=== PATIENT | female | born 1960 | race Hispanic/Latino ===

== ENCOUNTER 2017-08-24 14:59 | Observation (INO) | payer BC ==
[~2017-08-24] VITALS: Ht 162.6 cm; Wt 76.0 kg
[~2017-08-24 14:59] MED LIST: LORTAB 10-325 M1 TAB PO; PERCOCET 5/325M1 TAB PO
--- NOTE | 2017-08-24 15:14 | NUR ---
PT TO ROOM 9 VIA WC. ABLE TO STAND AND TRANSFER SELF.
[2017-08-24] MEDS ORDERED: METFORMIN500 MG PO (15:23)
[2017-08-24] MEDS ORDERED: LISINOPRIL5 MG PO (15:24)
[2017-08-24] MEDS ORDERED: ASPIRIN81 MG PO (15:24)
[2017-08-24 15:41] LABS: HEMATOCRIT 40.4 % (37.0-47.0); HEMOGLOBIN 13.2 g/dl (12.0-16.0); IMMATURE GRANULOCYTES 0.3 % (0.0-1.0); MEAN CELL VOLUME 83.6 fL CALC (80.0-100.0); MEAN CORPUSCULAR HGB 27.3 pG CALC (26.0-32.0); MEAN CORPUSCULAR HGB CONC 32.7 g/L CALC (32.0-36.0); NEUT# 5.24 thou/uL (2.00-7.15); RED BLOOD COUNT 4.83 mill/uL (4.20-5.60); RED CELL DISTRI WIDTH 13.8 % (11.5-15.5)
[2017-08-24 15:54] LABS: ALKALINE PHOSPHATASE 125 u/l (38-126); AMYLASE 102 u/l (30-110); ANION GAP 16 (6-22 (CALC)); BILIRUBIN, TOTAL 0.4 mg/dL (0.0-1.4); BUN 11 mg/dL (7-17); BUN/CREATININE RATIO 15 (12-20 (CALC)); CALCIUM 10.4 mg/dL (8.4-10.2); CARBON DIOXIDE 28 mmol/l (22-30); CHLORIDE 100 mmol/l (95-108); CREATININE 0.8 mg/dL (0.5-1.0); GFR > 60 ML/MIN (>=60 (CALC)); GFR FOR AFR.AMER. > 60 ML/MIN (>=60 (CALC)); GLUCOSE 132 mg/dL (65-105); LIPASE 99 u/l (23-300); SGOT/AST 24 u/l (14-36); SGPT/ALT 43 u/l (9-52); SODIUM 141 mmol/l (137-146)
[2017-08-24 16:06] LABS: MYOGLOBIN 64 ng/mL (0 - 62)
--- NOTE | 2017-08-24 16:30 | NUR ---
PT TO RADIOLOGY VIA WC. STABLE AND APPEARS COMFORTABLE.
--- NOTE | 2017-08-24 17:04 | NUR ---
PT RETURNED FROM RADIOLOGY. ADVISED OF WAIT TIME FOR RESULTS. IV SITE HEALTHY. FLUIDS RESUMED.
[2017-08-24 17:07] LABS: URINE BILIRUBIN - DIPSTICK NEGATIVE (NEGATIVE); URINE BLOOD DIPSTICK SMALL (NEGATIVE); URINE CLARITY CLEAR; URINE COLOR YELLOW; URINE GLUCOSE - DIPSTICK NEGATIVE (NEGATIVE); URINE KETONE NEGATIVE (NEGATIVE); URINE LEUK ESTERASE NEGATIVE (NEGATIVE); URINE NITRITE - DIPSTICK NEGATIVE (Negative); URINE PROTEIN - DIPSTICK NEGATIVE (NEG-TRACE); URINE UROBILINOGEN - DIPSTICK 0.2 E.U./dL (0.2)
[2017-08-24 17:24] LABS: URINE SQUAMOUS EPITHELIAL CELL FEW EPI/hpf (0-FEW); URINE WBC 0-2 WBC/hpf (0-5)
--- NOTE | 2017-08-24 17:58 | NUR ---
PT TO CT VIA STRETCHER.
--- NOTE | 2017-08-24 18:02 | NUR ---
SBAR PRINTED TO FLOOR
--- NOTE | 2017-08-24 18:10 | NUR ---
PT RETURNED FROM CT ADVISED OF WAIT TIME. STATES PAIN IS DECREASED. IV SITE HEALTHY.
--- NOTE | 2017-08-24 18:35 | NUR ---
MD AT BEDSIDE AND DISCUSSED ADMIT POC.PT VOICED UNDERSTANDNG.
--- NOTE | 2017-08-24 19:01 | NUR ---
REPORT PROVIDED TO ORION SMITH, ON [employer].
--- NOTE | 2017-08-24 19:41 | NUR ---
[facility] TO TRANSPORT PT TO MS2. PT RESTING ON STRETCHER SPEAKING WITH FAMILY. STATES ABD PAIN IS MINIMAL. CALL LIGHT WITHIN REACH. WILL CONTINUE TO MONITOR.
--- NOTE | 2017-08-24 19:51 | NUR ---
PT REPORTING NAUSEA, ORDERS RECEIVED FROM ANTIEMETIC.
--- NOTE | 2017-08-24 20:04 | NUR ---
PT MEDICATED WITH ANTIEMETIC FOR C/O NAUSEA. PT TOLERATED WELL. INFORMED PT AWAITING ON [facility] FOR ACCEPTANCE. DENIES ANY NEEDS AT THIS TIME. STATES NO PAIN AT THIS TIME. CALL LIGHT WITHIN REACH. HOB LOWERED PER PT REQUEST. LIGHTS DIMMED FOR COMFORT.
--- NOTE | 2017-08-24 20:25 | NUR ---
Admission Note Report Given to: ORION MCCOLLUM Transported by: Wheelchair X Stretcher Transported with: X Nurse Transporter X Patent IV O2 Manager [employer]
[2017-08-24 20:30] VITALS: BP 174/95
--- NOTE | 2017-08-24 20:30 | NUR ---
FROM ER TO MED/SURG B267, VIA STRETCHER, ALERT AND ORIENTED X3, ACCOMPAINED BY MACKENZIE, JANICE, AND . ABLE TO AMBULATE TO STANDING SCALE THEN TO BED, UNSTEADY GAIT NOTED, C/O OF DIZZINESS, HEADACHE, RATES IT AT 9/10, NAUSEA, NO EMESIS NOTED AT THIS TIME, STATES PAIN IN RUQ IS AT 2/10, PREVIOUSLY MEDICATED FOR PAIN, STATES IS DIABETIC, TAKES METFORMIN 1000 MG AM & PM AT HOME, ONLY TOOK AM DOSE, DENIES MONITORING GLUCOSE REGULARLY AT HOME, BP IS ELEVATED, WILL RECHECK MANUAL BP, STATES TOOK HER DAILY DOSE OF LISINOPRIL AT HOME. WILL NOTIFY DR. MCBRIDE OF PT NEEDS FOR ORDERS, CALL ALBRECHT AT REACH. WILL CONTINUE TO MONITOR.
--- NOTE | 2017-08-24 21:42 | NUR ---
MEDICATED WITH PHENERGAN IM, FOR NAUSEA, AND TYLENOL FOR HEADACHE, WILL CONTINUE TO REASSESS. CALL ALBRECHT AT REACH. NO EMESIS, BM, URINE, INSPECTED AT THIS TIME, IV SITE IS PATENT.
[2017-08-24 23:00] VITALS: BP 150/78
--- NOTE | 2017-08-24 23:04 | NUR ---
PT STATES NAUSEA AND HEADACHE "IS ALMOST GONE." NO FACIAL GRIMACE OR GUARDING NOTED, DENIES PAIN AT THIS TIME. AT BEDSIDE.
[2017-08-24 23:41] VITALS: BP 123/77
--- NOTE | 2017-08-24 23:52 | NUR ---
HELD HYDRALAZINE BP 123/77 AT THIS TIME. PT DENIES PAIN, N/V, VOICES NO COMPLAINTS AT THIS TIME, NO DISTRESS NOTED, AFEBRILE, ENCOURAGED TO CALL IF NEEDED. AT BEDSIDE.
--- NOTE | 2017-08-25 01:57 | NUR ---
PT APPEARS TO BE SLEEPING, SNORING LOUDLY, VOICES NO COMPLAINTS AT THIS TIME, RESP ARE EVEN AND UNLABORED, AT BEDSIDE. CALL ALBRECHT AT REACH.
--- NOTE | 2017-08-25 04:50 | NUR ---
PULL UP HAND IN PT ROOM, DENIES PAIN, N/V, LEACH, VOIDED X1, NO BM, AMBULATED TO BRP, STEADY GAIT NOTED, AT BEDSIDE, NO FACIAL GRIMACE OR GUARDING NOTED, RESP ARE EVEN AND UNLABORED, VSS, AFEBRILE, CALL ALBRECHT AT REACH.
--- NOTE | 2017-08-25 04:57 | NUR ---
PT DENIES CP OR SOB, NO DISTRESS NOTED, SPO2 86%, INSTRUCTED ON DEEP BREATHING EXERCISES, IN THROUGH NOSE OUT THROUH MOUTH, AFTER BREATHING TECHN SPO2 UP TO 90%, DAUGHTER AT BEDSIDE, ENCOURAGED TO CALL IF NEEDED. CALL ALBRECHT AT REACH. DENIES USING O2 AT HOME. PLACED ON O2 VIA NC PER NC.
[2017-08-25 05:10] VITALS: BP 113/70
[2017-08-25 05:27] LABS: ALBUMIN 4.4 g/dL (3.2-5.0); ALKALINE PHOSPHATASE 103 u/l (38-126); AMYLASE 75 u/l (30-110); ANION GAP 15 (6-22 (CALC)); BILIRUBIN, TOTAL 0.6 mg/dL (0.0-1.4); BUN 10 mg/dL (7-17); BUN/CREATININE RATIO 14 (12-20 (CALC)); CALCIUM 9.6 mg/dL (8.4-10.2); CARBON DIOXIDE 27 mmol/l (22-30); CHLORIDE 104 mmol/l (95-108); CREATININE 0.7 mg/dL (0.5-1.0); GFR > 60 ML/MIN (>=60 (CALC)); GFR FOR AFR.AMER. > 60 ML/MIN (>=60 (CALC)); GLUCOSE 136 mg/dL (65-105); LIPASE 146 u/l (23-300); POTASSIUM 4.2 mmol/l (3.5-5.1); SGOT/AST 26 u/l (14-36); SGPT/ALT 41 u/l (9-52); SODIUM 142 mmol/l (137-146); TOTAL PROTEIN 7.6 g/dL (6.3-8.2)
[2017-08-25 05:36] LABS: HEMATOCRIT 38.5 % (37.0-47.0); HEMOGLOBIN 12.6 g/dl (12.0-16.0); IMMATURE GRANULOCYTES 0.3 % (0.0-1.0); MEAN CELL VOLUME 84.6 fL CALC (80.0-100.0); MEAN CORPUSCULAR HGB 27.7 pG CALC (26.0-32.0); MEAN CORPUSCULAR HGB CONC 32.7 g/L CALC (32.0-36.0); NEUT# 6.03 thou/uL (2.00-7.15); RED BLOOD COUNT 4.55 mill/uL (4.20-5.60)
[2017-08-25 06:20] VITALS: BP 145/78
--- NOTE | 2017-08-25 06:30 | NUR ---
VSS, AFEBRILE, NO DISTRESS NOTED, DENIES ABDOMINAL PAIN OR OTHER NEEDS/DISCOMFORT, AT BEDSIDE. CALL ALBRECHT AT REACH.
--- NOTE | 2017-08-25 07:20 | NUR ---
RECEIVED BEDSIDE REPORT FROM VEDA SEARS. RESTING IN BED WITH EYES CLOSED, AWAKENS EASILY. RESPS EVEN AND UNLABORED ON ROOM AIR. DENIES PAIN OR DISCOMFORT. AT BEDSIDE. PLAN OF CARE DISCUSSED. SAFETY PRECAUTIONS REINFORCED. BED IN LOWEST POSITION WITH WHEELS LOCKED. CALL LIGHT WITHIN REACH. WILL CONTINUE TO MONITOR.
[2017-08-25 07:46] VITALS: BP 128/84
--- NOTE | 2017-08-25 08:00 | NUR ---
TO [facility] IN STABLE CONDITION VIA WHEELCHAIR ACCOMPANIED BY RUSTAM MOTT.
--- NOTE | 2017-08-25 09:45 | NUR ---
RETURNED FROM [facility] VIA WHEELCHAIR ACCOMPANIED BY [email or web address] TECH.
[2017-08-25 10:13] LABS: CHOLESTEROL HDL RATIO 4.8 (<4.4 (CALC)); MAGNESIUM 1.9 mg/dL (1.6-2.3)
--- NOTE | 2017-08-25 12:00 | NUR ---
DR CRONIN IN WITH PT, NEW ORDERS RECEIVED.
[2017-08-25 12:24] VITALS: BP 127/79
--- NOTE | 2017-08-25 13:23 | NUR ---
TOLERATED LOW FAT DIET WITHOUT C/O NAUSEA OR ABD PAIN.
[2017-08-25] MEDS ORDERED: LIPITOR10 M1 PO (14:28)
--- NOTE | 2017-08-25 14:52 | NUR ---
Discharge instructions given. Patient verbalizes understanding of same. Discharged in stable condition via Ambulatory to Home with spouse. All belongings sent with pt.
== END 2017-08-25 15:50 | disposition home or self-care (01) | DRG 446 ==
LOC: ED 14:59 → ED-I 15:21 → ED 15:21 → ED-I 17:57 → ED 18:26 → MS2 18:27
PROVIDERS: Emergency Medicine; Nurse Practitioner Family; ADMIT Internal Medicine; ATTEND Internal Medicine
DX: K80.20 Calculus of gallbladder without cholecystitis without obstruction (principal); E11.69 Type 2 diabetes mellitus with other specified complication; I10 Essential (primary) hypertension; E78.5 Hyperlipidemia, unspecified; Z79.84 Long term (current) use of oral hypoglycemic drugs
CPT/HCPCS: A9537; G0378

== ENCOUNTER 2017-12-14 07:03 | Day surgery (SDC) | payer BC ==
[~2017-12-14] VITALS: Ht 162.6 cm; Wt 77.1 kg
[~2017-12-14 07:03] MED LIST changes: +ASPIRIN81 MG PO; +B-12500 MC2 PO; +LIPITOR10 M1 PO; +LISINOPRIL5 MG PO; +METFORMIN HCL1000 MG PO; +METFORMIN500 MG PO; +MOTRIN800 MG PO; +NORVASC PO
[2017-12-14] MEDS ORDERED: PERCOCET1 TA2 PO (09:56)
[2017-12-14 11:13] VITALS: BP 136/64
== END 2017-12-14 11:50 | disposition home or self-care (01) | DRG 419 ==
LOC: ORM 07:03
PROVIDERS: ATTEND Surgery
PROC: 0FT44ZZ Resection of Gallbladder, Percutaneous Endoscopic Approach (ICD-10-PCS; principal; 2017-12-14)
PROC: BF001ZZ Plain Radiography of Bile Ducts using Low Osmolar Contrast (ICD-10-PCS; 2017-12-14)
DX: K80.10 Calculus of gallbladder with chronic cholecystitis without obstruction (principal); E11.69 Type 2 diabetes mellitus with other specified complication; I10 Essential (primary) hypertension; E78.5 Hyperlipidemia, unspecified; F41.9 Anxiety disorder, unspecified; K21.9 Gastro-esophageal reflux disease without esophagitis
CPT/HCPCS: Q9967

== ENCOUNTER 2019-08-13 12:23 | Emergency (ER) | payer OTHER ==
[~2019-08-13] VITALS: Ht 162.6 cm; Wt 79.0 kg
[~2019-08-13 12:23] MED LIST changes: +BUSPIRONE5 MG PO; +COZAAR25 MG PO; +CYMBALTA60 MG PO; +PERCOCET1 TA2 PO; +TRAZODONE50 MG PO
[2019-08-13 13:17] LABS: HEMATOCRIT 36.6 % (37.0-47.0); HEMOGLOBIN 11.9 g/dl (12.0-16.0); IMMATURE GRANULOCYTES 0.3 % (0.0-5.0); MEAN CELL VOLUME 84.1 fL CALC (80.0-100.0); MEAN CORPUSCULAR HGB 27.4 pG CALC (26.0-32.0); MEAN CORPUSCULAR HGB CONC 32.5 g/L CALC (32.0-36.0); NEUT# 4.67 thou/uL (2.00-7.15); RED BLOOD COUNT 4.35 mill/uL (4.20-5.60); RED CELL DISTRI WIDTH 13.6 % (11.5-15.5)
[2019-08-13 13:33] LABS: ALBUMIN 4.4 g/dL (3.2-5.0); ALKALINE PHOSPHATASE 84 u/l (38-126); ANION GAP 14 (6-22 (CALC)); BUN 15 mg/dL (7-17); BUN/CREATININE RATIO 16 (12-20 (CALC)); CARBON DIOXIDE 27 mmol/l (22-30); CHLORIDE 101 mmol/l (95-108); CREATININE 0.9 mg/dL (0.5-1.0); GFR > 60 ML/MIN (>=60 (CALC)); GFR FOR AFR.AMER. > 60 ML/MIN (>=60 (CALC)); LIPASE 124 u/l (23-300); POTASSIUM 4.4 mmol/l (3.5-5.1); SGOT/AST 20 u/l (14-36); SODIUM 138 mmol/l (137-146); TOTAL PROTEIN 7.8 g/dL (6.3-8.2)
[2019-08-13 13:35] LABS: BILIRUBIN, TOTAL 0.3 mg/dL (0.0-1.4)
[2019-08-13 15:18] LABS: URINE BILIRUBIN - DIPSTICK NEGATIVE (NEGATIVE); URINE BLOOD DIPSTICK NEGATIVE (NEGATIVE); URINE COLOR YELLOW; URINE GLUCOSE - DIPSTICK NEGATIVE (NEGATIVE); URINE KETONE TRACE mg/dL (NEGATIVE); URINE LEUK ESTERASE TRACE (NEGATIVE); URINE NITRITE - DIPSTICK NEGATIVE (Negative); URINE PROTEIN - DIPSTICK NEGATIVE (NEG-TRACE); URINE SPECIFIC GRAVITY 1.025; URINE UROBILINOGEN - DIPSTICK 0.2 E.U./dL (0.2)
[2019-08-13] MEDS ORDERED: ZOFRAN4 M1 PO (15:31)
[2019-08-13 15:50] VITALS: BP 131/71
== END 2019-08-13 15:58 | disposition home or self-care (01) ==
LOC: ED 12:23
PROVIDERS: Family Medicine
DX: S39.012A Strain of muscle, fascia and tendon of lower back, initial encounter (principal); I10 Essential (primary) hypertension; X58.XXXA Exposure to other specified factors, initial encounter; Z87.442 Personal history of urinary calculi

== ENCOUNTER 2020-09-07 13:30 | Emergency (ER) | payer SELFPAY ==
[~2020-09-07] VITALS: Ht 162.6 cm; Wt 76.5 kg
[~2020-09-07 13:30] MED LIST changes: +ZOFRAN4 M1 PO
[2020-09-07 14:15] LABS: HEMATOCRIT 40.3 % (37.0-47.0); HEMOGLOBIN 12.8 g/dl (12.0-16.0); IMMATURE GRANULOCYTES 0.3 % (0.0-5.0); MEAN CELL VOLUME 86.3 fL CALC (80.0-100.0); MEAN CORPUSCULAR HGB 27.4 pG CALC (26.0-32.0); MEAN CORPUSCULAR HGB CONC 31.8 g/dL CAL (32.0-36.0); RED BLOOD COUNT 4.67 mill/uL (4.20-5.60); RED CELL DISTRI WIDTH 13.2 % (11.5-15.5)
[2020-09-07 14:29] LABS: ALBUMIN 4.7 g/dL (3.2-5.0); ALKALINE PHOSPHATASE 106 u/l (38-126); ANION GAP 14 (6-22 (CALC)); BILIRUBIN, TOTAL 0.3 mg/dL (0.0-1.4); BUN 14 mg/dL (7-17); BUN/CREATININE RATIO 17 (12-20 (CALC)); CARBON DIOXIDE 25 mmol/l (22-30); CHLORIDE 105 mmol/l (95-108); CREATININE 0.8 mg/dL (0.5-1.0); GFR > 60 ML/MIN (>=60 (CALC)); GFR FOR AFR.AMER. > 60 ML/MIN (>=60 (CALC)); POTASSIUM 3.7 mmol/l (3.5-5.1); SGOT/AST 28 u/l (14-36); SODIUM 140 mmol/l (137-146); TOTAL PROTEIN 8.8 g/dL (6.3-8.2)
[2020-09-07 16:33] LABS: URINE BILIRUBIN - DIPSTICK NEGATIVE (NEGATIVE); URINE BLOOD DIPSTICK TRACE-INTACT (NEGATIVE); URINE COLOR YELLOW; URINE GLUCOSE - DIPSTICK NEGATIVE (NEGATIVE); URINE KETONE NEGATIVE (NEGATIVE); URINE LEUK ESTERASE NEGATIVE (NEGATIVE); URINE NITRITE - DIPSTICK NEGATIVE (Negative); URINE PROTEIN - DIPSTICK NEGATIVE (NEG-TRACE); URINE UROBILINOGEN - DIPSTICK 0.2 E.U./dL (0.2)
[2020-09-07 17:00] VITALS: BP 105/59
== END 2020-09-07 17:07 | disposition home or self-care (01) | DRG 312 ==
LOC: ED 13:30
PROVIDERS: Family Medicine
DX: R55 Syncope and collapse (principal); E11.9 Type 2 diabetes mellitus without complications; I10 Essential (primary) hypertension; Z79.84 Long term (current) use of oral hypoglycemic drugs

== ENCOUNTER 2022-12-26 18:10 | Observation (INO) | payer OTHER ==
[2022-12-26] VITALS (68 sets, daily range): BP systolic 135–219; BP diastolic 72–119
[~2022-12-26] VITALS: Ht 162.6 cm; Wt 79.0 kg
--- NOTE | 2022-12-26 18:35 | NUR ---
PT W/C TO ROM 2 VIA W/C FOR TRIAGE WITH FAMILY
[2022-12-26 19:00] LABS: BASO% 0.1 % (0-3); EOS% 0.5 % (0-8); HEMATOCRIT 42.5 % (37.0-47.0); HEMOGLOBIN 13.7 g/dl (12.0-16.0); IMMATURE GRANULOCYTES 0.2 % (0.0-5.0); LYMPH% 27.3 % (15-41); MEAN CELL VOLUME 84.2 fL CALC (80.0-100.0); MEAN CORPUSCULAR HGB 27.1 pG CALC (26.0-32.0); MEAN CORPUSCULAR HGB CONC 32.2 g/dL CAL (32.0-36.0); MONO% 3.7 % (2-13); NEUT# 7.45 thou/uL (2.00-7.15); NEUT% 68.2 % (42-76); RED BLOOD COUNT 5.05 mill/uL (4.20-5.60); RED CELL DISTRI WIDTH 13.4 % (11.5-15.5)
[2022-12-26 19:18] LABS: ALKALINE PHOSPHATASE 96 u/l (38-126); ANION GAP 16 (6-22 (CALC)); BILIRUBIN, TOTAL 0.3 mg/dL (0.02-1.3); BUN 9 mg/dL (8-23); BUN/CREATININE RATIO 10 (12-20 (CALC)); CARBON DIOXIDE 25 mmol/l (22-30); CHLORIDE 101 mmol/l (95-108); GFR FOR AFR.AMER. > 60 ML/MIN (>=60 (CALC)); GFR OTHER RACES 56 ML/MIN (>=60 (CALC)); POTASSIUM 4.1 mmol/l (3.5-5.1); SGOT/AST 28 u/l (9-36); SODIUM 138 mmol/l (137-146)
[2022-12-26 19:19] LABS: ALBUMIN 5.1 g/dL (3.2-5.0); TOTAL PROTEIN 9.4 g/dL (6.3-8.2)
--- NOTE | 2022-12-26 22:15 | NUR ---
Admission Note Report Given to: ANA LILIA SEARS Transported by: Luis Transported with: Nurse Patent IV Weapons Designer Location: [facility] ROOM [id number]
--- NOTE | 2022-12-26 22:34 | NUR ---
PT BEING PREPARED FOR ADMISSION AND WANTED TO SPEAK WITH DR ABOUT NEED FOR ADMISSION. AND INTERPRETUER AT BEDSIDE. PT DECIDED SHE WANTED TO LEAVE AMA. PT AND FAMILY MEMBER AT BEDSIDE. IV REMOVED AND EQUIP REMOVED AND PT SIGNED AMA. PT P/W/D LEFT AMBULATORY WITH VISITOR. NICOLA.
== END 2022-12-26 22:34 | disposition left against medical advice (07) ==
LOC: ED 18:10 → ED-I 18:49 → ED 18:49 → ED-I 20:22 → ED 20:31 → MS2 20:32
PROVIDERS: Family Medicine; ADMIT Internal Medicine; ATTEND Internal Medicine
DX: R55 Syncope and collapse (principal); I16.1 Hypertensive emergency; R07.9 Chest pain, unspecified; I10 Essential (primary) hypertension; E11.9 Type 2 diabetes mellitus without complications; Z79.84 Long term (current) use of oral hypoglycemic drugs

== ENCOUNTER 2023-03-16 20:35 | Emergency (ER) | payer OTHER ==
[~2023-03-16] VITALS: Ht 162.6 cm; Wt 60.0 kg
[2023-03-16 23:40] VITALS: BP 168/86
== END 2023-03-16 23:40 | disposition home or self-care (01) ==
LOC: ED 20:35
DX: I10 Essential (primary) hypertension (principal); E11.9 Type 2 diabetes mellitus without complications; Z79.84 Long term (current) use of oral hypoglycemic drugs

== ENCOUNTER 2024-12-21 12:14 | Emergency (ER) | payer OTHER ==
[~2024-12-21] VITALS: Ht 162.6 cm; Wt 72.5 kg
[2024-12-21] MEDS ORDERED: EPINEPHrine HCL 1 MG/ML AMP IM STA (12:32)
[2024-12-21] MEDS ORDERED: FAMOTIDINE 10MG/ML 2ML SDV IV STA (12:32)
[2024-12-21] MEDS ORDERED: methylPREDNISolone SODIUM SUCC 125 MG/2 ML SDV IV STA (12:32)
[2024-12-21] MEDS ORDERED: DiphenhydrAMINE HCL 50 MG/ML SDV IV STA (12:32)
[2024-12-21 12:48] VITALS: BP 215/116
[2024-12-21 13:00] VITALS: BP 171/94
[2024-12-21 13:15] VITALS: BP 170/89
[2024-12-21 14:00] VITALS: BP 158/88
[2024-12-21] MEDS ORDERED: PREDNISONE50 MG PO (14:17)
[2024-12-21] MEDS ORDERED: EPIPEN 2-P0.3 MG/0.3 IM (14:17)
[2024-12-21 14:25] VITALS: BP 158/88
== END 2024-12-21 14:43 | disposition home or self-care (01) ==
LOC: ED 12:14
DX: T78.40XA Allergy, unspecified, initial encounter (principal); I10 Essential (primary) hypertension; E11.9 Type 2 diabetes mellitus without complications; X58.XXXA Exposure to other specified factors, initial encounter; Z79.84 Long term (current) use of oral hypoglycemic drugs
CPT/HCPCS: J1200